=== PATIENT | male | born 1995 | race African-American/Black ===

== ENCOUNTER 2017-12-07 12:46 | Emergency (ER) | payer MEDICAID, OTHER ==
[~2017-12-07] VITALS: Ht 162.6 cm; Wt 69.9 kg
[2017-12-07 13:05] VITALS: BP 117/71
== END 2017-12-07 15:39 | disposition home or self-care (01) ==
LOC: ER 12:46
DX: S39.012A Strain of muscle, fascia and tendon of lower back, initial encounter (principal); Z88.1 Allergy status to other antibiotic agents; X50.0XXA Overexertion from strenuous movement or load, initial encounter; Y93.89 Activity, other specified; Y99.8 Other external cause status; Y92.89 Other specified places as the place of occurrence of the external cause
CPT/HCPCS: 72100

== ENCOUNTER 2019-08-14 22:40 | Emergency (ER) | payer MEDICAID ==
[~2019-08-14] VITALS: Ht 170.2 cm; Wt 70.3 kg
[2019-08-15 03:19] VITALS: BP 120/83
== END 2019-08-15 03:21 | disposition home or self-care (01) ==
LOC: ER 22:40
DX: J06.9 Acute upper respiratory infection, unspecified (principal); J01.80 Other acute sinusitis; B97.89 Other viral agents as the cause of diseases classified elsewhere
CPT/HCPCS: 71046

== ENCOUNTER 2019-10-05 17:21 | Inpatient (IN) | payer MEDICAID ==
[~2019-10-05] VITALS: Ht 170.2 cm; Wt 71.8 kg
[2019-10-05 18:12] LABS: Basophils # (auto) 0 uL; Basophils % (auto) 0.3 % (0.0-2.0); Eosinophils # (auto) 0 uL; Eosinophils % (auto) 0.2 % (0.0-7.0); Hematocrit 50.4 % (41.0-53.0); Lymphocytes # (auto) 2.2 uL; Lymphocytes % (auto) 21.7 % (10.0-50.0); Mean Corpuscular Hemoglobin 32.7 pg (28.0-32.0); Mean Corpuscular Hgb Conc. 33.8 g/dL (32.0-36.0); Mean Corpuscular Volume 96.9 fL (80.0-100.0); Monocytes # (auto) 0.8 uL; Monocytes % (auto) 7.7 % (0.0-12.0); Neutrophils # (auto) 7.1 uL; Neutrophils % (auto) 70.1 % (37.0-80.0); Nucleated Red Blood Cells % 0.1 %; Platelet Count (auto) 271 10^3/uL (140-450); Red Cell Distribution Width 12.7 % (11.8-14.3); White Blood Cell 10.1 10^3/uL (4.4-10.8)
[2019-10-05 18:15] LABS: Urine Bacteria NONE SEEN /hpf (None Seen); Urine Blood Negative /uL (Negative); Urine Mucus FEW (None Seen); Urine Specific Gravity 1.024 (1.001-1.035); Urine WBC 9 /hpf (0 - 3)
[2019-10-05 18:28] LABS: Calcium 9.1 mg/dL (8.5-10.1); Potassium 3.7 mmol/L (3.5-5.1)
[2019-10-05 18:28] LABS: Alcohol, Urine < 3.0 mg/dL (0-5); Amphetamine Screen, Urine NEGATIVE (NEGATIVE); Barbiturate Scree,Urine NEGATIVE (NEGATIVE); Benzodiazephine Screen, Urine NEGATIVE (NEGATIVE); Cocaine Screen, Urine POSITIVE (NEGATIVE); Opiate Scree,Urine NEGATIVE (NEGATIVE); Phencyclidine Screen, Urine NEGATIVE (NEGATIVE)
[2019-10-05 18:32] LABS: BUN/Creatinine Ratio 13.5; Bilirubin, Total 0.8 mg/dL (0.2-1.0); Total Protein 8.3 g/dL (6.4-8.2)
[2019-10-05 18:38] LABS: Cannabinoid Screen, Urine POSITIVE (NEGATIVE)
[2019-10-05] MEDS ORDERED: SODIUM CHLORIDE 0.9% 1,000 ML IVB ONE (21:58)
[2019-10-05] MEDS ORDERED: ONDANSETRON HCL 4 MG/2 ML VIAL IV ONE (22:00)
[2019-10-05] MEDS ORDERED: SODIUM CHLORIDE 0.9% 1,000 ML IV ONE (22:00)
[2019-10-05] MEDS ORDERED: MORPHINE SULFATE 4 MG/ML SYR/VIAL IV ONE ×2 (22:00→23:30)
[2019-10-05 22:25] LABS: Magnesium 2.2 mg/dL (1.6-2.6)
[2019-10-06] MEDS ORDERED: LORazepam 0.5 MG TAB PO PRN
[2019-10-06] MEDS ORDERED: ONDANSETRON HCL 4 MG/2 ML VIAL IV PRN
[2019-10-06] MEDS ORDERED: DOCUSATE SOD 100 MG CAP PO PRN
[2019-10-06] MEDS ORDERED: ACETAMINOPHEN 325 MG TAB PO PRN
[2019-10-06 00:16] LABS: INR 1.01 (0.9-1.15); Partial Thromboplastin Time 28.1 sec (23.64-32.05)
[2019-10-06] MEDS: SODIUM CHLORIDE 0.9% 1,000 ML IV SCH ×3 (00:48→16:22)
--- NOTE | 2019-10-06 01:03 | NUR ---
MS admit from ER [place] admitted to [facility] floor after SBAR received. Patient oriented to primary RN, unit, room, bed, and unit policies regarding patient care and visiting hours. Patient weighed by bedscale and encouraged to call if they need something. All questions and concerns addressed, patient verbalized understanding. Bed locked in lowest position and bed rails up x2. Call light within reach.
[2019-10-06 01:32] VITALS: BP 119/72
[2019-10-06 05:06] VITALS: BP 96/47
[2019-10-06 05:43] LABS: Basophils # (auto) 0 uL; Basophils % (auto) 0.5 % (0.0-2.0); Eosinophils # (auto) 0.1 uL; Hematocrit 42.4 % (41.0-53.0); Hemoglobin 14.3 g/dL (13.5-17.5); Lymphocytes # (auto) 3.4 uL; Lymphocytes % (auto) 48.2 % (10.0-50.0); Mean Corpuscular Hemoglobin 32.7 pg (28.0-32.0); Mean Corpuscular Hgb Conc. 33.7 g/dL (32.0-36.0); Mean Corpuscular Volume 96.9 fL (80.0-100.0); Monocytes # (auto) 0.6 uL; Monocytes % (auto) 8.2 % (0.0-12.0); Neutrophils % (auto) 42.1 % (37.0-80.0); Nucleated Red Blood Cells % 0.2 %; Platelet Count (auto) 216 10^3/uL (140-450); Red Blood Cells 4.38 10^6/uL (4.5-5.90); Red Cell Distribution Width 12.6 % (11.8-14.3); White Blood Cell 7.1 10^3/uL (4.4-10.8)
[2019-10-06 06:04] LABS: BUN/Creatinine Ratio 14.4; Calcium 7.7 mg/dL (8.5-10.1)
--- NOTE | 2019-10-06 08:00 | NUR ---
OPENING SHIFT NOTE ASSUMED CARE OF PT. PT IS AWAKE AND ALERT. NO SOB OR SIGNS OF DISTRESS NOTED. INSTRUCTED ON POC AND TO CALL FOR HELP PRN. BED IN LOWEST POSITION WITH SIDE RAILS UP X2. CALL LIGHT WITHIN REACH. WILL CONTINUE TO MONITOR.
[2019-10-06 09:00] VITALS: BP 93/61
[2019-10-06] MEDS: MORPHINE SULFATE 4 MG/ML SYR/VIAL IV PRN ×2 (10:02→21:13)
[2019-10-06] MEDS ORDERED: cefTRIAXone 1GM/50ML D5W 50 ML IV ONE (12:45)
--- NOTE | 2019-10-06 12:45 | NUR ---
DR COOK AT BEDSIDE. ORDERED ANTIBIOTICS AND TO CONTINUE NPO STATUS
[2019-10-06 13:00] VITALS: BP 110/63
[2019-10-06] MEDS: metroNIDAZOLE 500MG/100ML 100 ML IV SCH ×2 (13:10→21:38)
[2019-10-06] MEDS: HYDROcodone-ACET 5/325MG TAB PO PRN (13:34)
[2019-10-06 17:07] VITALS: BP 114/73
[2019-10-06 21:12] VITALS: BP 119/72
[2019-10-07] VITALS (7 sets, daily range): BP systolic 112–148; BP diastolic 66–112
[2019-10-07] MEDS: metroNIDAZOLE 500MG/100ML 100 ML IV SCH ×3 (06:06→22:49)
[2019-10-07 06:35] LABS: Basophils # (auto) 0 uL; Eosinophils # (auto) 0.1 uL; Eosinophils % (auto) 1.6 % (0.0-7.0); Hematocrit 41.3 % (41.0-53.0); Hemoglobin 14.2 g/dL (13.5-17.5); Lymphocytes # (auto) 1.8 uL; Lymphocytes % (auto) 46.1 % (10.0-50.0); Mean Corpuscular Hemoglobin 33.2 pg (28.0-32.0); Mean Corpuscular Hgb Conc. 34.4 g/dL (32.0-36.0); Mean Corpuscular Volume 96.3 fL (80.0-100.0); Monocytes # (auto) 0.3 uL; Neutrophils # (auto) 1.6 uL; Neutrophils % (auto) 42.3 % (37.0-80.0); Nucleated Red Blood Cells % 0.2 %; Platelet Count (auto) 208 10^3/uL (140-450); Red Blood Cells 4.29 10^6/uL (4.5-5.90); Red Cell Distribution Width 12.4 % (11.8-14.3); White Blood Cell 3.9 10^3/uL (4.4-10.8)
[2019-10-07 06:44] LABS: BUN/Creatinine Ratio 13.3; Calcium 7.9 mg/dL (8.5-10.1); Potassium 3.9 mmol/L (3.5-5.1)
[2019-10-07 06:47] LABS: Bilirubin, Total 0.8 mg/dL (0.2-1.0); Total Protein 6.5 g/dL (6.4-8.2)
--- NOTE | 2019-10-07 07:15 | NUR ---
Opening Shift Note Assumed care of patient, awake and alert. No S/S of distress/SOB or pain. Instructed on POC and to call for assist PRN, will continue to monitor for changes Q1hr and PRN. Fall risk precautions in place per safety protocol.
--- NOTE | 2019-10-07 08:06 | NUR ---
Pagejeff Marin for surgical consult regarding acute appendicitis, awaiting call back at this time. Will cont to monitor patient at this time.
[2019-10-07] MEDS: SODIUM CHLORIDE 0.9% 1,000 ML IV SCH (09:18)
[2019-10-07] MEDS: HYDROcodone-ACET 5/325MG TAB PO PRN (09:54)
[2019-10-07] MEDS: cefTRIAXone 1GM/50ML D5W 50 ML IV SCH (10:01)
--- NOTE | 2019-10-07 12:00 | NUR ---
Pagejeff Marin for surgical consult regarding acute appendicitis, awaiting call back at this time. Will cont to monitor patient.
--- NOTE | 2019-10-07 13:49 | NUR ---
Hospitalist at bedside MD Null at bedside aware of patient status including, pages made out to MD Marin for surgical consult. MD Null instructed this nurse to call MD Azar for surgical consult. Spoke to MD Azar and he states, he will see the patient today. No new orders received at this time. Will cont to monitor patient.
--- NOTE | 2019-10-07 15:30 | NUR ---
Surgeon at bedside Surgeon Doe at bedside, aware of patient status. Per Doe, surgery will be scheduled for today at 1645.
[2019-10-07] MEDS ORDERED: SUCCINYLCHOLINE CHLORIDE 20 MG/ML 10ML VIAL IV ONE (15:57)
[2019-10-07] MEDS ORDERED: KETOROLAC TROMETH 60MG/2ML VIAL ONE (16:00)
[2019-10-07] MEDS ORDERED: GLYCOPYRROLATE 0.2 MG/ML 1ML VIAL ONE (16:00)
[2019-10-07] MEDS ORDERED: ONDANSETRON HCL 4 MG/2 ML VIAL ONE (16:00)
[2019-10-07] MEDS ORDERED: SODIUM CHLORIDE LOCK 10 ML ONE (16:00)
[2019-10-07] MEDS ORDERED: MIDAZOLAM HCL 1MG/1ML-2 ML VIAL ONE (16:00)
[2019-10-07] MEDS ORDERED: NEOSTIGMINE 1 MG/ML INJ (10mg/10ML VIAL) ONE (16:00)
[2019-10-07] MEDS ORDERED: ROCURONIUM 10MG/ML 10ML VIAL IV ONE (16:00)
[2019-10-07] MEDS ORDERED: fentaNYL CITRATE 100 MCG/2 ML VL ONE (16:00)
[2019-10-07] MEDS ORDERED: HYDROmorphone HCL 2 MG/ML VL ONE (16:00)
[2019-10-07] MEDS ORDERED: PROPOFOL 10 MG/ML 20 ML IV ONE (16:00)
[2019-10-07] MEDS ORDERED: BUPIVACAINE 0.25% INJ 50ML VIAL ONE (16:12)
[2019-10-07] MEDS ORDERED: KETOROLAC TROMETH 30 MG/ML 1ML VIAL IV ONE (16:15)
[2019-10-07] MEDS ORDERED: METOCLOPRAMIDE HCL 5MG/ml INJ 2ml VIAL IV PRN (16:15)
[2019-10-07] MEDS ORDERED: HYDROmorphone HCL 2 MG/ML VL IV PRN (16:15)
[2019-10-07] MEDS ORDERED: fentaNYL CITRATE 100 MCG/2 ML VL IV PRN (16:15)
[2019-10-07] MEDS ORDERED: MORPHINE SULF INJ 2 MG/ML SYRINGE 1ML IV PRN (16:15)
--- NOTE | 2019-10-07 16:26 | NUR ---
Patient down for surgery at this time. Patient showing no signs of distress, sob, or pain at this time. Will cont to monitor patient when he returns to unit.
[2019-10-07] MEDS ORDERED: cefTRIAXone 1GM/50ML D5W 50 ML IV ONE (16:58)
--- NOTE | 2019-10-07 19:05 | NUR ---
Patient back from surgery. 3 small abdominal incisions with dermabond. No signs of distress, sob, or pain noted at this time. Abdominal binder and SCD's in place. Fall precautions in place per safety protocol. VSS: BP 134/82 HR 60 RR 16 O2 99% Temp. 97.7.
--- NOTE | 2019-10-07 19:15 | NUR ---
Care endorsed Care endorsed to night ZACHARY Corbett. Patient resting in bed, no signs of distress, sob, or pain noted at this time.
[2019-10-07] MEDS: MORPHINE SULFATE 4 MG/ML SYR/VIAL IV PRN (19:23)
--- NOTE | 2019-10-07 19:25 | NUR ---
OPENING NOTE- NOC SHIFT PATIENT IS ALERT AND ORIENTED X4 ANSWERS IN COMPLETE SENTENCES AND MAKES APPROPRIATE EYE CONTACT. PATIENT IS LAYING IN BED, BED IS LOCKED AT LOWEST POSITION, BED RAILS UP X2 AND HEAD OF BED IS UP >30 DEGREES. PATIENT IS POST APPENDECTOMY TODAY. INCISIONS TO MEDIAL ABDOMEN ARE DRY AND INTACT. PATIENT IS WEARING ABDOMINAL BINDER. IS AT BEDSIDE; [employer] NOTED. PATIENT COMPLAINS OF PAIN; MORPHINE WAS GIVEN BY DAY SHIFT RN ORDERED. BEDSIDE TABLE WITHIN REACH, CALL LIGHT WITHIN REACH. DISCUSSED POC WITH PATIENT AND INSTRUCTED PATIENT TO CALL; PATIENT VERBALIZED UNDERSTANDING. WILL CONTINUE TO MONITOR Q1H AND PRN.
--- NOTE | 2019-10-07 20:00 | NUR ---
PATIENT UP WALKING IN HALLWAY. ASSISTED PATIENT TO WALK; PATIENT WALKED APPROX 30 FEET OUT SIDE OF ROOM. GAIT NOTED TO BE SLOW BUT STEADY. EDUCATED PATIENT REGARDING IMPORTANCE AND BENEFITS OF AMBULATION POST SURGERY.
--- NOTE | 2019-10-07 21:30 | NUR ---
IV removal IV DC'd with clean sterile technique, catheter fully intact. Pressure dressing applied to site. Patient tolerated well.
--- NOTE | 2019-10-07 21:35 | NUR ---
IV insertion IV access obtained, via clean sterile technique by inserting 22 gauge catheter at after attempt(s). IV secured properly. No trauma to site. Patient tolerated well. INSERTED, DATED AND INITIALED BY KAMILLA SHARMA.
--- NOTE | 2019-10-07 22:00 | NUR ---
PROVIDED PATIENT WITH JELLO, APPLE JUICE AND ICE CHIPS; PATIENT TOLERATED WELL. BOWEL SOUNDS ARE HYPOACTIVE BUT PRESENT IN ALL FOUR QUADRANTS. PATIENT REPORTS PASSING OF GAS.
[2019-10-08] MEDS: MORPHINE SULFATE 4 MG/ML SYR/VIAL IV PRN ×4 (01:35→18:41)
[2019-10-08] MEDS: SODIUM CHLORIDE 0.9% 1,000 ML IV SCH ×2 (02:17→18:38)
[2019-10-08 05:00] VITALS: BP 121/74
--- NOTE | 2019-10-08 05:00 | NUR ---
PATIENT AMBULATING IN HALLWAY PATIENT IS WALKING THE HALLWAY AROUND NURSES' STATION. STEADY GAIT NOTED. PATIENT TOLERATING WELL. PATIENT REPORTS GENERALIZED BODY PAIN.
[2019-10-08] MEDS: metroNIDAZOLE 500MG/100ML 100 ML IV SCH ×3 (05:47→22:31)
[2019-10-08 06:15] LABS: Basophils # (auto) 0 uL; Basophils % (auto) 0.5 % (0.0-2.0); Eosinophils # (auto) 0.1 uL; Eosinophils % (auto) 0.9 % (0.0-7.0); Hematocrit 41.7 % (41.0-53.0); Hemoglobin 14.7 g/dL (13.5-17.5); Lymphocytes % (auto) 36.9 % (10.0-50.0); Mean Corpuscular Hemoglobin 33.5 pg (28.0-32.0); Mean Corpuscular Hgb Conc. 35.2 g/dL (32.0-36.0); Monocytes # (auto) 0.4 uL; Monocytes % (auto) 8.3 % (0.0-12.0); Neutrophils # (auto) 2.9 uL; Neutrophils % (auto) 53.4 % (37.0-80.0); Nucleated Red Blood Cells % 0.1 %; Platelet Count (auto) 211 10^3/uL (140-450); Red Blood Cells 4.39 10^6/uL (4.5-5.90); Red Cell Distribution Width 11.9 % (11.8-14.3); White Blood Cell 5.4 10^3/uL (4.4-10.8)
[2019-10-08 06:32] LABS: Calcium 7.8 mg/dL (8.5-10.1); Potassium 3.6 mmol/L (3.5-5.1)
[2019-10-08 06:35] LABS: BUN/Creatinine Ratio 12.2
--- NOTE | 2019-10-08 07:03 | NUR ---
CLOSING NOTE- NOC SHIFT PATIENT IS RESTING IN BED. NO S/SX OF DISTRESS, SOB OR PAIN. PATIENT IS WEARING SCDs. WILL ENDORSE PATIENT CARE TO DAY SHIFT RN.
[2019-10-08 09:00] VITALS: BP 118/84
[2019-10-08] MEDS: cefTRIAXone 1GM/50ML D5W 50 ML IV SCH (10:59)
--- NOTE | 2019-10-08 11:40 | NUR ---
Craft Artist consult regarding Advance Directives. Provided pt with information on Advance Directives and Durable Power of Guide Travel Form. Pt verbalized understanding and accepted information. Will contact Craft Artist for any further concerns or issues.
--- NOTE | 2019-10-08 12:46 | NUR ---
NUTRITION ASSESSMENT NOTES Please refer to link notes of nutrition screen form filed under the intervention section of the plan of care for further details. Est. Needs: 1850 kcal to 2200 kcal (25-30 kcal/kgBW), 59 gms to 74 gms pro (0.8-1.0 gms/kgBW). Will continue to monitor pertinent labs and reassess nutrient need prn Thank you. Addendum: 10/08/19 at [address] Amended: Links added.
[2019-10-08 13:00] VITALS: BP 113/70
[2019-10-08 16:55] VITALS: BP 131/89
--- NOTE | 2019-10-08 18:00 | NUR ---
Dr Azar Cleared for Discharge Dr Azar came to patient bedside and cleared patient for discharge.
--- NOTE | 2019-10-08 19:00 | NUR ---
End of Shift Endorsed care to NOC nurse. Patient sitting up in bed, shows no signs of distress at this time. Patient's significant other at bedside.
[2019-10-08] MEDS: HYDROcodone-ACET 5/325MG TAB PO PRN (20:49)
--- NOTE | 2019-10-08 21:24 | NUR ---
+FLATUS PATIENT STATES HE IS PASSING GAS. PER DR GONZALEZ ORDER IF PATIENT PASSING GAS TO ADVANCE DIET TO FULL LIQUID. ORDER FULL LIQUID DIET PER DR GONZALEZ.
[2019-10-08 22:00] VITALS: BP 126/82
[2019-10-09 05:00] VITALS: BP 135/88
[2019-10-09] MEDS: metroNIDAZOLE 500MG/100ML 100 ML IV SCH ×2 (05:54→14:00)
[2019-10-09 06:32] LABS: Basophils # (auto) 0 uL; Basophils % (auto) 0.4 % (0.0-2.0); Eosinophils # (auto) 0 uL; Hematocrit 42.7 % (41.0-53.0); Lymphocytes # (auto) 1.3 uL; Lymphocytes % (auto) 33.3 % (10.0-50.0); Mean Corpuscular Hemoglobin 33.4 pg (28.0-32.0); Mean Corpuscular Hgb Conc. 35.2 g/dL (32.0-36.0); Mean Corpuscular Volume 94.9 fL (80.0-100.0); Monocytes # (auto) 0.4 uL; Monocytes % (auto) 9.8 % (0.0-12.0); Neutrophils # (auto) 2.2 uL; Neutrophils % (auto) 55.5 % (37.0-80.0); Nucleated Red Blood Cells % 0.1 %; Platelet Count (auto) 218 10^3/uL (140-450)
[2019-10-09 06:51] LABS: Calcium 8.1 mg/dL (8.5-10.1); Potassium 3.8 mmol/L (3.5-5.1)
[2019-10-09 08:54] VITALS: BP 121/76
[2019-10-09] MEDS: cefTRIAXone 1GM/50ML D5W 50 ML IV SCH (09:00)
[2019-10-09] MEDS: SODIUM CHLORIDE 0.9% 1,000 ML IV SCH (11:18)
--- NOTE | 2019-10-09 12:45 | NUR ---
Discharged Discharge instructions given as ordered. Encourage to follow up with PMD and Dr Azar as instructed. All questions and concerns addressed. Patient verbalized understanding. Medication reconciliation form completed and copy given to patient. IV removed with catheter intact, pressure dressing applied. Patient took abdominal binder home. Patient taken to vehicle via wheelchair with all personal belongings, accompanied by staff and family member. No distress noted at time of departure.
== END 2019-10-09 12:45 | disposition home or self-care (01) | DRG 233 ==
LOC: ER 17:21 → OVERFLOW 17:22 → WEST WING 10-06 01:06
PROVIDERS: ADMIT Hospitalist; ATTEND Internal Medicine
PROC: 0W9H4ZZ Drainage of Retroperitoneum, Percutaneous Endoscopic Approach (ICD-10-PCS; 2019-10-07)
PROC: 0DTJ4ZZ Resection of Appendix, Percutaneous Endoscopic Approach (ICD-10-PCS; principal; 2019-10-07 16:59)
DX: K35.33 Acute appendicitis with perforation, localized peritonitis, and gangrene, with abscess (principal); E44.1 Mild protein-calorie malnutrition; E86.0 Dehydration; E83.51 Hypocalcemia; K42.9 Umbilical hernia without obstruction or gangrene; Z88.1 Allergy status to other antibiotic agents; Z68.24 Body mass index [BMI] 24.0-24.9, adult
CPT/HCPCS: 36415; 71045; 74176; 80048; 80053; 80307; 81001; 82150; 83690; 83735; 85025; 85610; 85730; 86850; 86900; 86901; 87040; G0378; J0330; J0696; J1885; J2250; J2405; J2704; J3490